=== PATIENT | female | born 1985 | race Caucasian/White ===

== ENCOUNTER 2017-01-06 10:05 | Emergency (ER) | payer SELFPAY ==
[~2017-01-06 10:05] MED LIST: ADRENALINE CHL INJ (ABBOJECT) ONE; SODIUM BICARBONATE 8.4% INJ ADULT ONE
--- NOTE | 2017-01-06 10:23 | DR.CONFEP ---
HPI - Time Seen Time seen: 10:00 - HPI Comment HPI Comment: Patient had been seen at [facility] on 01/03/17. - Complaint Chief Complaint Doctors Comments: EMS was called at 0930 of the 31 y/o female who had fallen at home and was unresposive. EMS arrived at the scene at 0933 and iniated ACLS protocol, patient received epinephrine x3, bicarbonate x1 D50, narcan, 200mg licodaine and defibulated x1. There was no response. Unpon arrival to the ED ACLS continued. Monitor showed PEA, received epinephrine, bicarbonate and continued chest compression. There was no sponstaneous respiration or cardiac activity. ACLS discontinued at 1018 and patient was pronounced . Family members were informed of pronouncement. PE (PEDS) - General General Appearance: Other (In cardiac arrest, unresponsive, no visable signs of trauma) - Diagnosis Discharge Problem: due to cardiac arrest - Discharge Plan Condition: Stable - Follow ups/Referrals Follow ups/Referrals: [facility],None [Primary Care Provider] - 3 days - Instructions
[2017-01-06 10:45] LABS: BASOPHILS # (AUTO) 0.3 X10^3/uL (0.0-0.1); BASOPHILS % (AUTO) 1.9 % (0.2-1.0); EOSINOPHILS % (AUTO) 0.1 % (0.9-2.9); HEMATOCRIT 26.3 % (36.0-47.0); HEMOGLOBIN 7.6 g/dL (12.0-16.0); LYMPHOCYTES # (AUTO) 5.6 X10^3/uL (1.3-2.9); LYMPHOCYTES % (AUTO) 42.2 % (21.0-51.0); MEAN CORPUSCULAR HEMOGLOBIN 19.1 pg (27.0-34.0); MEAN CORPUSCULAR HGB CONC 28.9 g/dL (33.0-35.0); MEAN CORPUSCULAR VOLUME 66.2 fL (80.0-100.0); MEAN PLATELET VOLUME 8.2 fL (7.4-11.0); MONOCYTES # (AUTO) 0.7 x10^3/uL (0.3-0.8); MONOCYTES % (AUTO) 5.1 % (0.0-13.0); NEUTROPHILS # (AUTO) 6.7 x10^3/uL (2.2-4.8); NEUTROPHILS % (AUTO) 50.7 % (42.0-75.0); PLATELET COUNT 181 X10^3/uL (150.0-450.0); RED BLOOD COUNT 3.97 X10^6/uL (3.5-5.4); RED CELL DISTRIBUTION WIDTH 18.9 % (11.6-16.5); WHITE BLOOD COUNT 13.2 X10^3/uL (3.6-10.0)
[2017-01-06 11:02] LABS: BLOOD UREA NITROGEN 16 mg/dL (7-18); CALCIUM 8.2 mg/dL (8.5-10.1); CHLORIDE 104 mmol/L (98-107); CKMB % 1.4 % (<4); COR NA(FOR HYPERGLY) 143 mmol/L (136-145); CREATINE KINASE 71 Units/L (26-192); CREATINE KINASE MB < 1.0 ng/mL (0-4.0); CREATININE 0.82 mg/dL (0.55-1.02); GLUCOSE 263 mg/dL (65-99); TROPONIN I 0.02 ng/mL (0-1.5); eGFR BLACK RACES > 60 (>60); eGFR NON BLACK RACES > 60 (>60)
[2017-01-06 11:03] LABS: HYPOCHROMASIA 2+; MICROCYTOSIS 1+; PLATELET MORPHOLOGY COMMENT NORMAL (NORMAL)
[2017-01-06 11:04] VITALS: BP 88/44
[2017-01-06] MEDS ORDERED: XANAX ONE (11:17)
[2017-01-07 14:22] LABS: SODIUM 139 mmol/L (136-145)
== END 2017-01-06 13:00 ==
LOC: ER 10:05
PROC: 5A12012 Performance of Cardiac Output, Single, Manual (ICD-10-PCS; principal; 2017-01-06)
DX: I46.9 Cardiac arrest, cause unspecified (principal)
CPT/HCPCS: 36415; 71010; 80048; 82550; 82553; 84484; 85025; 92950; 93041; 96365; 96374; 96375; 99285; J0170; J3490